=== PATIENT | female | born 1980 | race American Indian/Alaskan Native ===

== ENCOUNTER 2016-06-05 10:33 | Emergency (ER) | payer SELFPAY ==
[2016-06-05 12:15] LABS: Bilirubin,Urine NEG (Negative); Blood,Urine MOD (Negative); Ketones,Urine NEG (Negative); Leukocyte Esterase,Urine NEG (Negative); Mucus,Urine FEW /HPF; Nitrite,Urine NEG (Negative); Protein,Urine <15 mg/dL mg/dL (Negative); Urobilinogen,Urine < 2.0 mg/dL (<2.0); WBC,Urine < 1.0 /HPF (0.0-6.0)
--- NOTE | 2016-06-05 16:11 | Cat Scan Report ---
CT scan of the abdomen and pelvis without IV contrast: History: Abdominal pain. Findings: Normal lung bases. No pleural pericardial effusion. Normal liver spleen pancreas and gallbladder. Normal adrenals, kidney parenchyma and bladder. No free intraperitoneal fluid or air. No evidence of adenopathy. Normal aorta. Gaseous colon with stool in colon. No bowel distention. Surgical clips right lower quadrant. Impression: No acute abdominal findings.
[2016-06-05 16:26] LABS: Basophils % (Auto) 0.2 % (0.0-1.8); Eosinophils % (Auto) 1.5 % (0.0-4.3); Mean Corpuscular HGB Conc 30 % (30-34); Mean Corpuscular Volume 72 fl (79-97); Platelet Count 172 K/mm3 (140-440); Red Blood Count 4.92 M/mm3 (3.65-5.03); Red Cell Distribution Width 16.2 % (13.2-15.2); White Blood Count 8.7 K/mm3 (4.5-11.0)
[2016-06-05 16:27] LABS: Hematocrit 35.4 % (30.3-42.9); Hemoglobin 10.7 gm/dl (10.1-14.3); Mean Corpuscular Hemoglobin 22 pg (28-32)
[2016-06-05 16:42] LABS: Alanine Aminotransferase 12 units/L (7-56); Albumin 4.1 g/dL (3.9-5); Albumin/Globulin Ratio 1.1 %; Alkaline Phosphatase 84 units/L (35-129); Anion Gap 15 mmol/L; Bilirubin,Total < 0.2 mg/dL (0.1-1.2); Blood Urea Nitrogen 12 mg/dL (7-17); Calcium 8.9 mg/dL (8.4-10.2); Carbon Dioxide 26 mmol/L (22-30); Glucose 79 mg/dL (65-100); Lipase 17 units/L (13-60); Potassium 4.2 mmol/L (3.6-5.0); Sodium 137 mmol/L (137-145); Total Protein 7.7 g/dL (6.3-8.2)
[2016-06-05] MEDS ORDERED: TORADOL IV ONE (16:46)
--- NOTE | 2016-06-05 17:04 | Emergency Department Report ---
HPI - General Chief Complaint: Abdominal Pain Time Seen by Provider: 06/05/16 14:40 - HPI HPI: Chief complaint: Right flank pain HPI: Patient is 36-year-old female states she's been having a 2 day history of right flank pain radiating to her right lower quadrant. Patient states she's been having burning pain to both lower extremities from the knee down for the last several months. Patient states that she's had slight nausea. Patient's flank pain is worse with movement. Patient states she is been diagnosed with lupus by 1 consumer loan specialist and then had a second consumer loan specialist tell her he did not think that she had lupus. Patient denies nausea, vomiting or diarrhea. Patient is morbidly obese which she states started after she was put on prednisone by her first consumer loan specialist. She was taken off prednisone by her second consumer loan specialist. She does not have any abdominal pain or dysuria. Mode of arrival: private car Source: Patient Began: see above Duration: See above Context: The patient denies any injury Quality: Sharp Severity: 10 out of 10 Improved with: Holding still Worsened with movement ED Past Medical Hx - Past Medical History Previous Medical History?: Yes Additional medical history: Lupus - Surgical History Hx Appendectomy: Yes Additional Surgical History: , tubal ligation - Social History Smoking Status: Never Smoker Substance Use Type: None - Medications Home Medications: Home Medications Medication Instructions Recorded Confirmed Last Taken Type traMADol [Ultram 50 MG tab] 50 mg PO Q6HR PRN #20 tablet 11/01/14 Unknown Rx Gabapentin [Neurontin] 300 mg PO BID #30 cap 06/05/16 Unknown Rx Ibuprofen [Motrin 600 MG tab] 600 mg PO Q8H PRN #20 tablet 06/05/16 Unknown Rx ED Review of Systems ROS: Stated complaint: BACK /SIDE PAIN/NAUSEA/ LT FOOT PAIN Other details as noted in HPI ROS Constitutional: No fever ENT: No uri symptoms Cardiovascular: No chest pain Respiratory: No sob or cough GI: No nausea vomiting or diarrhea : No dysuria frequency or urgency, Skin: No rash Neuro: No focal weakness or numbness Psych: No depression Rayshawn/lymph: No edema Physical Exam - Physical Exam Vital Signs: Vital Signs 06/05/16 06/05/16 10:57 14:38 Temperature 98.5 F 98.0 F Pulse Rate 80 76 Respiratory 18 18 Rate Blood Pressure 140/80 Blood Pressure 179/66 [Left] O2 Sat by Pulse 100 100 Oximetry Physical Exam: GENERAL: The patient is an obese -[place] female in no acute distress. HEENT: Normocephalic. Atraumatic. Extraocular motions are intact. Patient has moist mucous membranes. NECK: Supple. No meningitic signs are noted. There is no adenopathy noted. CHEST/LUNGS: Clear to auscultation. There is no respiratory distress noted. HEART/CARDIOVASCULAR: Regular. There is no tachycardia. There is no gallop rub or murmur. ABDOMEN: Abdomen is soft, nontender. Patient has normal bowel sounds. There is no abdominal distention. SKIN: There is no rash. There is no edema. There is no diaphoresis. NEURO: The patient is awake, alert, and oriented. The patient is cooperative. The patient has no focal neurologic deficits. The patient has normal speech. MUSCULOSKELETAL: There is right flank tenderness. There is pain with torso range of motion. There is no evidence of acute injury. Straight leg raise negative ED Course Vital Signs 06/05/16 06/05/16 10:57 14:38 Temperature 98.5 F 98.0 F Pulse Rate 80 76 Respiratory 18 18 Rate Blood Pressure 140/80 Blood Pressure 179/66 [Left] O2 Sat by Pulse 100 100 Oximetry - Reevaluation(s) Reevaluation #1: 06/05/16 16:49 Patient states she is allergic to aspirin but not to ibuprofen so she will be given IV Toradol and observed for any allergic reaction. Patient states she had improvement with the Toradol. 06/05/16 ED Medical Decision Making - Lab Data Result diagrams: 06/05/16 Unknown 06/05/16 Unknown Laboratory Tests 06/05/16 11:00 Urine HCG, Qual Negative - Radiology Data Radiology results: report reviewed (CT of the abdomen and pelvis was within normal limits.) Critical care attestation.: If time is entered above; I have spent that time in minutes in the direct care of this critically ill patient, excluding procedure time. ED Disposition Clinical Impression: Neuropathy Back pain Qualifiers: Back pain location: back pain in other location Chronicity: acute Qualified Code(s): M54.9 - Dorsalgia, unspecified Disposition: DISCHARGED TO HOME OR SELFCARE Is pt being admited?: No Does the pt Need Aspirin: No Condition: Stable Instructions: Peripheral Neuropathy (ED), Back Pain (ED) Prescriptions: Gabapentin [Neurontin] 300 mg PO BID #30 cap Ibuprofen [Motrin 600 MG tab] 600 mg PO Q8H PRN #20 tablet PRN Reason: Pain Referrals: PRIMARY CARE,MD [Primary Care Provider] - 3-5 Days follow-up, your consumer loan specialist for further evaluation [Other] - 3-5 Days Time of Disposition: 17:48
[2016-06-05 18:27] VITALS: BP 162/70
== END 2016-06-05 18:26 | disposition home or self-care (01) ==
LOC: ED 10:33
DX: G62.9 Polyneuropathy, unspecified (principal); M54.9 Dorsalgia, unspecified; Z90.49 Acquired absence of other specified parts of digestive tract; Z98.51 Tubal ligation status
CPT/HCPCS: 36415; 74176; 80053; 81001; 81025; 83690; 85025; 96374; 99284; J1885